=== PATIENT | female | born 1945 | race Caucasian/White ===

== ENCOUNTER 2018-06-16 14:37 | Emergency (ER) | payer OTHER ==
[~2018-06-16] VITALS: Ht 165.1 cm; Wt 108.9 kg
[~2018-06-16 14:37] MED LIST: ACIPHEX 20 MG T20 M1 PO; ACYCLOVIR 800800 MG PO; CARVEDILOL25 MG PO; CELEBREX 200 M200 M1 PO; CELEBREX 200 M200 MG PO; COREG25 MG PO; CYMBALTA30 MG PO; GLIPIZIDE ER10 MG PO; INVOKANA300 MG PO; JANUVIA100 MG PO; LANTUS SUBQ; LEVEMIR SUBQ; LISINOPRIL20 MG PO; MEDROLDOSEPACK PO; MYRBETRIQ25 MG PO; NASONEX17 GM NASAL; PERCOCET PO; PROTONIX40 M1 PO; SIMVASTATIN40 MG PO; TRAMADOL 50 MG50 MG PO; TRAZODONE HCL100 MG PO; VESICARE 5 MG TA5 M1 PO
[2018-06-16] MEDS ORDERED: NEURONTIN 300300 M1 PO (14:41)
== END 2018-06-16 16:07 | disposition home or self-care (01) ==
LOC: ER 14:37
DX: S00.03XA Contusion of scalp, initial encounter (principal); W19.XXXA Unspecified fall, initial encounter; Y93.89 Activity, other specified; Y92.89 Other specified places as the place of occurrence of the external cause; Y99.8 Other external cause status; I11.0 Hypertensive heart disease with heart failure; I50.9 Heart failure, unspecified; E11.9 Type 2 diabetes mellitus without complications; G47.30 Sleep apnea, unspecified; Z95.0 Presence of cardiac pacemaker; Z88.8 Allergy status to other drugs, medicaments and biological substances

== ENCOUNTER 2020-04-30 11:46 | Emergency (ER) | payer OTHER ==
[~2020-04-30] VITALS: Ht 165.1 cm; Wt 90.7 kg
[~2020-04-30 11:46] MED LIST changes: +NEURONTIN 300300 M1 PO
[2020-04-30] MEDS ORDERED: TRESIBA100 UNIT/1 SUBQ (11:54)
[2020-04-30 12:11] LABS: ABSOLUTE NEUTROPHILS 10.6 thou/uL (1.4-8.2); BASOPHILS 0.5 % (0.0-2.0); EOSINOPHILS 0.3 % (0.0-3.0); HEMATOCRIT 47.2 % (37.0-47.0); MCHC 33.9 g/dL (28.0-37.0); MCV 91.3 fL (80.0-100.0); MONOCYTES 5.3 % (1.0-8.0); PLATELET COUNT 231 thou/uL (150-400); POLYS 84.9 % (36.0-66.0); RBC 5.17 mil/uL (4.20-5.00); RDW 13.2 % (10.5-14.5); WBC 12.5 thou/uL (4.0-11.0)
[2020-04-30 12:15] LABS: ANION GAP 9 mmol/L (7-16); BUN 16 mg/dL (7-18); CALCIUM 9.3 mg/dL (8.5-10.1); CHLORIDE 101 mmol/L (98-107); CO2 29 mmol/L (21-32); CREATININE 1.1 mg/dL (0.6-1.0); GLUCOSE 346 mg/dL (74-106); POTASSIUM 4.3 mmol/L (3.5-5.1); SODIUM 139 mmol/L (136-145)
[2020-04-30 12:24] LABS: APTT 26.1 Seconds (24.5-32.8); PROTIME 10.6 Seconds (9.3-11.4)
[2020-04-30 12:27] LABS: ALBUMIN 3.8 g/dL (3.4-5.0); DIRECT BILIRUBIN 0.1 mg/dL (<0.1-0.2); LIPASE 158 U/L (73-393); SGOT 38 U/L (15-37); SGPT 45 U/L (30-65); TOTAL BILIRUBIN 0.8 mg/dL (0.2-1.0); TOTAL PROTEIN 7.9 g/dL (6.4-8.2); TROPONIN-I <0.06 ng/mL (<0.06)
[2020-04-30] MEDS ORDERED: PHENERGAN 25 MG25 M1 PO (16:54)
[2020-04-30 17:39] VITALS: BP 165/67
--- NOTE | 2020-05-02 16:00 | EKG ---
[facility] [place] [address] ELECTROCARDIOGRAM REPORT Name: EDWIN RYAN ROMEO Room #: DEP [facility]#: [id number] Admission: 04/30/20 Attend Phys: Discharge: 04/30/20 Date of : 49 Report #: [id number] THIS REPORT FOR: cc: Denise Goodman Christine L. 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 : 1945 Requested By: Rosibel Gardner Order Number: [id number] MD: Tima Urrutia Measurements Intervals [place] Rate: 108 P: 49 LA: 143 QRS: 184 QRSD: 120 T: 56 QT: 384 QTc: 515 Interpretive Statements Atrial-sensed ventricular-paced rhythm No further analysis attempted due to paced rhythm Baseline wander in lead(s) II,III,aVF Compared to ECG 05/29/2018 10:34:21 No significant changes Electronically Signed On 05-02-2020 16:00:09 CDT by Tima Urrutia [email or web address] <ELECTRONICALLY SIGNED> By: Tima Urrutia MD 05/02/20 1600 1158 1158 Tima Urrutia MD /EPI
== END 2020-04-30 17:39 | disposition home or self-care (01) ==
LOC: ER 11:46
PROVIDERS: Emergency Medicine
DX: R11.2 Nausea with vomiting, unspecified (principal); R19.7 Diarrhea, unspecified; R06.02 Shortness of breath; I25.2 Old myocardial infarction; I11.0 Hypertensive heart disease with heart failure; I50.9 Heart failure, unspecified; E11.9 Type 2 diabetes mellitus without complications; Z86.73 Personal history of transient ischemic attack (TIA), and cerebral infarction without residual deficits; Z95.0 Presence of cardiac pacemaker; Z79.899 Other long term (current) drug therapy; Z79.4 Long term (current) use of insulin; Z88.4 Allergy status to anesthetic agent